=== PATIENT | female | born 1960 | race Caucasian/White ===

== ENCOUNTER → 2023-09-22 17:27 | Outpatient (REF) | payer OTHER, SELFPAY | LOC: MRI 17:27 | PROVIDERS: ATTENDING PHYSICIAN Psychiatry & Neurology Neurology; FAMILY PHYSICIAN Family Medicine | DX: R90.89 Other abnormal findings on diagnostic imaging of central nervous system (principal) | CPT/HCPCS: 72157; A9575 ==

== ENCOUNTER → 2023-10-01 17:31 | Outpatient (REF) | payer OTHER, SELFPAY | LOC: MRI 17:31 | PROVIDERS: ATTENDING PHYSICIAN Psychiatry & Neurology Neurology; FAMILY PHYSICIAN Family Medicine | DX: R90.89 Other abnormal findings on diagnostic imaging of central nervous system (principal) | CPT/HCPCS: 70553; 72156; A9575 ==

== ENCOUNTER → 2024-05-10 19:26 | Outpatient (REF) | payer OTHER, SELFPAY | LOC: WDC 19:26 | PROVIDERS: ATTENDING PHYSICIAN Obstetrics & Gynecology; FAMILY PHYSICIAN Family Medicine | DX: Z12.31 Encounter for screening mammogram for malignant neoplasm of breast (principal) | CPT/HCPCS: 77063; 77067 ==

== ENCOUNTER → 2025-02-24 07:00 | Outpatient (REF) | payer MEDICARE, OTHER, SELFPAY | LOC: MRI 07:00 | PROVIDERS: ATTENDING PHYSICIAN Student in an Organized Health Care Education/Training Program; FAMILY PHYSICIAN Student in an Organized Health Care Education/Training Program | DX: M79.671 Pain in right foot (principal) | CPT/HCPCS: 73718 ==

== ENCOUNTER → 2025-07-29 12:36 | Outpatient (REF) | payer MEDICARE, OTHER, SELFPAY | LOC: RAD 12:36 | PROVIDERS: ATTENDING PHYSICIAN Student in an Organized Health Care Education/Training Program | DX: M81.0 Age-related osteoporosis without current pathological fracture (principal) | CPT/HCPCS: 77080 ==

== ENCOUNTER → 2025-08-03 14:19 | Outpatient (REF) | payer MEDICARE, OTHER, SELFPAY | LOC: DHSLP 14:19 | PROVIDERS: ATTENDING PHYSICIAN Internal Medicine; FAMILY PHYSICIAN Student in an Organized Health Care Education/Training Program | DX: G47.19 Other hypersomnia (principal); G47.8 Other sleep disorders; R06.83 Snoring | CPT/HCPCS: 95800 ==